=== PATIENT | female | born 1955 | race Caucasian/White ===

== ENCOUNTER 2017-06-04 00:48 | Emergency (ER) | payer BC, OTHER ==
[2017-06-04 00:57] VITALS: RESP 16
[2017-06-04 01:23] LABS: ADD MORPH? NO; ADD SCAN? YES; FRAGMENT RBC FLAG 0 (0-99); HEMATOCRIT 41.9 % (38.0-47.0); HEMOGLOBIN 14.3 g/dL (12.6-16.3); LEFT SHIFT FLG 0 (0-99); LIPEMIA HEMOLYSIS FLAG 90 (0-99); MEAN CELL HEMOGLOBIN 29.2 pg (27.9-34.1); MEAN CELL HEMOGLOBIN CONCENTR. 34.1 g/dL (32.4-36.7); MEAN CELL VOLUME 85.7 fL (81.5-99.8); MEAN PLATELET VOLUME 10.6 fL (8.7-11.7); PLATELET CLUMPS FLAG 0 (0-99); PLATELET COUNT 138 10^3/uL (150-400); RED BLOOD CELL COUNT 4.89 10^6/uL (4.18-5.33); RED CELL DISTRIBUTION WIDTH 12.9 % (11.5-15.2)
--- NOTE | 2017-06-04 01:32 | EDPHY ---
H & P Stated Complaint: n/v, vertigo x 1 week, worsening today, shoulder pain Time Seen by Provider: 06/04/17 01:06 HPI/ROS: HPI The patient presents with vertigo which has been present for the last 1 week though is worse tonight. In she had 1 episode of vomiting tonight and that is what prompted her to come into the emergency room. 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 She does not have any changes in her vision, weakness of her arms or legs, any falls. She does report soreness in her left shoulder and trapezius muscle. She denies any injury but noticed this while she was trying to go to sleep tonight. REVIEW OF SYSTEMS Constitutional: No fever, no chills. Eyes: No discharge. ENT: No sore throat. Cardiovascular: No chest pain, no palpitations. Respiratory: No cough, no shortness of breath. Gastrointestinal: No abdominal pain, positive for vomiting. Genitourinary: No hematuria. Musculoskeletal: No back pain. Skin: No rashes. Neurological: No headache. 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, pituitary gross hormone secreting tumor, hypothyroidism Soc Hx: Lives at home with her PHYSICAL General Appearance: Alert, no distress Eyes: Pupils equal and round no pallor or injection ENT, Mouth: Mucous membranes moist Respiratory: There are no retractions, lungs are clear to auscultation Cardiovascular: Regular rate and rhythm Gastrointestinal: Abdomen is soft and non-tender, no masses, bowel sounds normal Neurological: A&O, moves all extremities Skin: Warm and dry, no rashes Musculoskeletal: Neck is supple non tender Extremities: symmetrical, full range of motion Psychiatric: Patient is oriented X 3, there is no agitation Source: Patient, Old records Exam Limitations: No limitations - Personal History Current Tetanus/Diphtheria Vaccine: No - Medical/Surgical History Hx Asthma: No Hx Chronic Respiratory Disease: No Hx Diabetes: No Hx Cardiac Disease: No Hx Renal Disease: No Hx Cirrhosis: No Hx Alcoholism: No Hx HIV/AIDS: No Hx Splenectomy or Spleen Trauma: No Other PMH: Thyroid CA, Thyroidectomy, HTN, x 2, brain surgery, acromegaly - Social History Smoking Status: Never smoked Constitutional: Initial Vital Signs Temperature (C) 36.5 C 06/04/17 00:53 Heart Rate 70 06/04/17 00:53 Respiratory Rate 16 06/04/17 00:53 Blood Pressure 180/107 H 06/04/17 00:53 O2 Sat (%) 94 06/04/17 00:53 O2 Delivery Mode Room Air Allergies/Adverse Reactions: No Known Allergies Allergy (Unverified 06/04/17 00:57) Home Medications: Medication Instructions Recorded Hydrochlorothiazide [HCTZ (*)] 25 mg PO DAILY 06/04/17 Lanreotide Acetate [Somatuline 120 mg SQ 06/04/17 [place]] Levothyroxine [Synthroid 88 mcg 88 mcg PO DAILY06 06/04/17 (*)] Lisinopril [Zestril 40 mg (*)] 40 mg PO DAILY 06/04/17 Medical Decision Making Differential Diagnosis: This is a 61-year-old female with past medical history of pituitary tumor, hyponatremia, hypothyroidism who presents with 1 week of intermittent vertigo which became worse tonight. It is now associated with 1 episode of vomiting. On exam she is well-appearing with a normal neurologic evaluation. Differential diagnosis includes hyponatremia, peripheral vertigo due to BPPV or labyrinthitis, central vertigo related to mass or CVA. Plan to check basic labs, obtain CT scan of brain. In the ER, labs and studies were normal including a sodium level. CT scan of her head was normal. She was given a L of fluid, meclizine with complete resolution of her symptoms. She was able to walk without difficulty. She will be discharged home in the care of her . I have instructed her to drink plenty of fluids and take meclizine as needed. - Data Points Laboratory Results: Laboratory Results 06/04/17 01:17 06/04/17 01:17 06/04/17 06/04/17 06/04/17 01:17 01: 01:17 WBC 5.59 10^3/uL 10^3/uL (3.80-9.50) RBC 4.89 10^6/uL 10^6/uL (4.18-5.33) Hgb 14.3 g/dL g/dL (12.6-16.3) Hct 41.9 % % (38.0-47.0) MCV 85.7 fL fL (81.5-99.8) MCH 29.2 pg pg (27.9-34.1) MCHC 34.1 g/dL g/dL (32.4-36.7) RDW 12.9 % % (11.5-15.2) Plt Count 138 10^3/uL L 10^3/uL (150-400) MPV 10.6 fL fL (8.7-11.7) Neut % (Auto) Not Reported Lymph % (Auto) Not Reported [place] % (Auto) Not Reported Eos % (Auto) Not Reported Baso % (Auto) Not Reported Nucleat RBC Rel Count 0.0 % % (0.0-0.2) Absolute Neuts (auto) Not Reported Absolute Lymphs (auto) Not Reported Absolute Monos (auto) Not Reported Absolute Eos (auto) Not Reported Absolute Basos (auto) Not Reported Absolute Nucleated RBC 0.00 10^3/uL 10^3/uL (0-0.01) Immature Gran % Not Reported Seg Neutrophils % 50 % % Band Neutrophils % 5 % % Lymphocytes % 30 % % Monocytes % 9 % % Eosinophils % 5 % % Basophils % 1 % % Immature Gran # Not Reported Absolute Seg Neuts 2.80 10^/uL 10^/uL (1.70-6.50) Absolute Band Neuts 0.28 10^3/uL 10^3/uL (0.00-0.70) Absolute Lymphocytes 1.68 10^3/uL 10^3/uL (1.00-3.00) Absolute Monocytes 0.50 10^3/uL 10^3/uL (0.30-0.80) Absolute Eosinophils 0.28 10^3/uL 10^3/uL (0.03-0.40) Absolute Basophils 0.06 10^3/uL 10^3/uL (0.02-0.10) Atypical Lymphocytes 2+ H Platelet Estimate DECREASED L (ADEQ) Smear Review By Pending Sodium 141 mEq/L mEq/L (134-144) Potassium 3.6 mEq/L mEq/L (3.5-5.2) Chloride 99 mEq/L mEq/L (97-110) Carbon Dioxide 27 mEq/l mEq/l (22-31) Anion Gap 15 mEq/L mEq/L (8-16) BUN 13 mg/dL mg/dL (7-23) Creatinine 0.8 mg/dL mg/dL (0.6-1.0) Estimated GFR > 60 Glucose 116 mg/dL H mg/dL (70-100) Calcium 9.3 mg/dL mg/dL (8.5-10.4) Total Bilirubin 1.8 mg/dL H mg/dL (0.1-1.4) AST 26 IU/L IU/L (14-46) ALT 45 IU/L IU/L (9-52) Alkaline Phosphatase 81 IU/L IU/L (38-126) Troponin I < 0.012 ng/mL ng/mL (0-0.034) Total Protein 7.7 g/dL g/dL (6.3-8.2) Albumin 4.7 g/dL g/dL (3.5-5.0) Medications Given: Discontinued Medications Sodium Chloride (Ns) 1,000 mls @ 0 mls/hr IV ONCE ONE; Wide Open PRN Reason: Protocol Stop: 06/04/17 02:27 Last Admin: 06/04/17 02:30 Dose: 1,000 mls Meclizine HCl (Meclizine Hcl) 25 mg PO EDNOW ONE Stop: 06/04/17 03:05 Last Admin: 06/04/17 03:15 Dose: 25 mg Ondansetron HCl (Zofran) 4 mg IVP EDNOW ONE Stop: 06/04/17 02:17 Last Admin: 06/04/17 02:18 Dose: 4 mg Departure - Departure Disposition: Home, Routine, Self-Care Clinical Impression: Vertigo, Nausea Condition: Good Instructions: Vertigo (ED) Additional Instructions: Please make sure to drink plenty of fluids. You can take meclizine 25 mg every 6 hours as needed for dizziness. Return to the emergency room if your worse in any way. Referrals: NONE *PRIMARY CARE P,. [Primary Care Provider] - As per Instructions
[2017-06-04 01:42] LABS: ATYPICAL LYMPHOCYTE FLAG 140 (0-99)
[2017-06-04 01:51] LABS: ALANINE AMINOTRANSFERASE 45 IU/L (9-52); ALBUMIN 4.7 g/dL (3.5-5.0); ALKALINE PHOSPHATASE 81 IU/L (38-126); ANION GAP 15 mEq/L (8-16); ASPARTATE AMINOTRANSFERASE 26 IU/L (14-46); BILIRUBIN,TOTAL 1.8 mg/dL (0.1-1.4); CALCIUM 9.3 mg/dL (8.5-10.4); CARBON DIOXIDE 27 mEq/l (22-31); CHLORIDE 99 mEq/L (97-110); CREATININE 0.8 mg/dL (0.6-1.0); GLOMERULAR FILTRATION RATE > 60; GLUCOSE 116 mg/dL (70-100); POTASSIUM 3.6 mEq/L (3.5-5.2); SODIUM 141 mEq/L (134-144); TOTAL PROTEIN 7.7 g/dL (6.3-8.2)
[2017-06-04 01:58] LABS: SCAN POSITIVE
[2017-06-04 01:59] LABS: ADD DIFF? YES
[2017-06-04 02:03] LABS: PLATELET ESTIMATE DECREASED (ADEQ)
[2017-06-04] MEDS ORDERED: ONDANSETRON 4 MG/2 ML VIAL IVP ONE (02:16)
[2017-06-04] MEDS ORDERED: ONDANSETRON 4 MG/2 ML VIAL ONE (02:16)
[2017-06-04] MEDS ORDERED: NS 1,000 ML IV ONE (02:26)
[2017-06-04] MEDS ORDERED: MECLIZINE HCL 12.5 MG TAB PO ONE (02:46)
[2017-06-04] MEDS ORDERED: MECLIZINE HCL 25 MG TAB ONE (03:02)
[2017-06-04] MEDS ORDERED: MECLIZINE HCL 25 MG TAB PO ONE (03:04)
--- NOTE | 2017-06-04 03:04 | CPEKG ---
Heart Rate: 69 RR Interval: 870 P-R Interval: 164 QRSD Interval: 80 QT Interval: 456 QTC Interval: 489 P [place]: 52 QRS [place]: 58 T Wave [place]: 74 EKG Severity - BORDERLINE ECG - EKG Impression: SINUS RHYTHM EKG Impression: BORDERLINE PROLONGED QT INTERVAL Electronically Signed By: Patti Burdick 04-Jun-2017 07:16:50
[2017-06-04 04:29] VITALS: BP 151/111; PULSE 66; TEMP 97.9; O2SAT 96
== END 2017-06-04 04:34 | disposition home or self-care (01) ==
DX: R42 Dizziness and giddiness (principal); R11.0 Nausea; E86.9 Volume depletion, unspecified; I10 Essential (primary) hypertension; Z85.850 Personal history of malignant neoplasm of thyroid
CPT/HCPCS: J2405

== ENCOUNTER → 2017-10-13 | Outpatient (CLI) | payer OTHER | LOC: CIMAGING 09:45 | PROVIDERS: ATTEND Internal Medicine | DX: M16.11 Unilateral primary osteoarthritis, right hip (principal); M47.897 Other spondylosis, lumbosacral region | CPT/HCPCS: 73502-PO ==